=== PATIENT | female | born 1960 | race Caucasian/White ===

== ENCOUNTER → 2018-03-13 | Outpatient (CLI) | payer BC ==
[2018-03-14 03:45] LABS: Dermato. farinae IgE <0.10 kU/L
[2018-03-14 03:49] LABS: Cat Epith & Dander IgE <0.10 kU/L; Cockroach IgE <0.10 kU/L; Dog Dander IgE <0.10 kU/L
[2018-03-14 05:22] LABS: Red Top (Bentgrass) IgE <0.10 kU/L
[2018-03-14 05:25] LABS: Alternaria alternata IgE <0.10 kU/L; Birch IgE <0.10 kU/L; Elm IgE <0.10 kU/L; Maple (Box Elder) IgE <0.10 kU/L; Oak IgE <0.10 kU/L; Ragweed,Common IgE <0.10 kU/L
== END | disposition home or self-care (01) ==
LOC: LABWHC1 16:13
PROVIDERS: ATTEND Internal Medicine
DX: J45.909 Unspecified asthma, uncomplicated (principal)
CPT/HCPCS: 36415; 82785; 85008; 86003

== ENCOUNTER 2019-01-05 16:51 | Emergency (ER) | payer BC ==
--- NOTE | 2019-01-05 17:17 | ED ---
Lower Extremity Injury HPI - General Chief Complaint: Extremity Injury, Lower Stated Complaint: Leg Swelling Time Seen by Provider: 01/05/19 17:16 Source: patient, RN notes reviewed, old records reviewed Mode of arrival: ambulatory Limitations: no limitations - History of Present Illness Initial Comments: This is a 4-year-old female the ER for evaluation. Patient has a for evaluation of right lower extremity swelling concern for DVT. No history of DVT. Swelling is been increased for a few days since he primary care with no help. No history of swollen extremity the past. Denies any trauma. No history of DVT or PE, no chest pain or shortness of breath MD Complaint: other (Right lower extremity swelling) -: days(s) Injury: Leg: Right Place: home Severity: mild Severity scale (1-10): 3 Worsens With: nothing Associated Symptoms: swelling - Related Data Home Medications Medication Instructions Recorded Confirmed Mometasone/Formoterol [Dulera 200 2 puff INHALATION RT-BID 08/24/14 01/05/19 Mcg/5 Mcg Inhaler] Fish Oil/Dha/Epa [Fish Oil 1,200 1 cap PO DAILY 08/25/14 01/05/19 mg Fish Oil] ALPRAZolam [Xanax] 0.25 mg PO DAILY PRN 01/05/19 01/05/19 Adrenal Support 1 tab PO DAILY 01/05/19 01/05/19 Curcumin 1 tab PO DAILY 01/05/19 01/05/19 Loratadine [Claritin] 10 mg PO DAILY 01/05/19 01/05/19 Montelukast [Singulair] 10 mg PO HS 01/05/19 01/05/19 Natural Thyroid Support 1 tab PO DAILY 01/05/19 01/05/19 Omeprazole [PriLOSEC] 20 mg PO DAILY 01/05/19 01/05/19 Systemic Enzymes 1 tab PO DAILY 01/05/19 01/05/19 Vitamin B Complex 1 cap PO DAILY 01/05/19 01/05/19 Vitamin D3(Unknown) 1 tab PO DAILY 01/05/19 01/05/19 Allergies Allergy/AdvReac Type Severity Reaction Status Date / Time codeine Allergy Nausea & Verified 01/05/19 17:31 Vomiting Review of Systems ROS Statement: Those systems with pertinent positive or pertinent negative responses have been documented in the HPI. ROS Other: All systems not noted in ROS Statement are negative. 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 Past Anesthesia/Blood Transfusion Reactions: No Reported Reaction Past Psychological History: No Psychological Hx Reported Smoking Status: Never smoker Past Alcohol Use History: Occasional Past Drug Use History: None Reported - Past Family History Father Family Medical History: Myocardial Infarction ([place]) Additional Family Medical History / Comment(s): at 65. first [place] at 58 General Exam - General Exam Comments Initial Comments: Right lower extremity edema, dorsalis pedis posterior tibialis pulses palpable. Capillary refill Limitations: no limitations General appearance: alert, in no apparent distress Head exam: Present: atraumatic, normocephalic, normal inspection Eye exam: Present: normal appearance, PERRL, EOMI. Absent: scleral icterus, conjunctival injection, periorbital swelling ENT exam: Present: normal exam, mucous membranes moist Neck exam: Present: normal inspection. Absent: tenderness, meningismus, lymphadenopathy Respiratory exam: Present: normal lung sounds bilaterally. Absent: respiratory distress, wheezes, rales, rhonchi, stridor Cardiovascular Exam: Present: regular rate, normal rhythm, normal heart sounds. Absent: systolic murmur, diastolic murmur, rubs, gallop, clicks GI/Abdominal exam: Present: soft, normal bowel sounds. Absent: distended, tenderness, guarding, rebound, rigid Extremities exam: Present: normal inspection, full ROM, normal capillary refill. Absent: tenderness, pedal edema, joint swelling, calf tenderness Back exam: Present: normal inspection Neurological exam: Present: alert, oriented X3, CN II-XII intact Psychiatric exam: Present: normal affect, normal mood Skin exam: Present: warm, dry, intact, normal color. Absent: rash Course Vital Signs 01/05/19 01/05/19 17:05 19:26 Temperature 98.3 F 98.1 F Pulse Rate 72 70 Respiratory 18 16 Rate Blood Pressure 123/76 120/78 O2 Sat by Pulse 98 98 Oximetry Medical Decision Making - Medical Decision Making 58 female the ER for evaluation of right lower extremity edema. Ultrasound negative for DVT and patient can be discharged home - Radiology Data Radiology results: report reviewed (Ultrasound right lower extremity negative for DVT), image reviewed Disposition Clinical Impression: Leg edema, right Disposition: HOME SELF-CARE Instructions (If sedation given, give patient instructions): Leg Edema (ED) Is patient prescribed a controlled substance at d/c from ED?: No Referrals: Maxi Goins MD [Primary Care Provider] - 1-2 days
--- NOTE | 2019-01-05 18:26 | US ---
EXAMINATION TYPE: US venous doppler duplex LE RT DATE OF EXAM: 01/05/2019 5:42 PM COMPARISON: NONE CLINICAL HISTORY: Pain. SIDE PERFORMED: Right TECHNIQUE: The lower extremity deep venous system is examined utilizing real time linear array sonog mayank with graded compression, doppler sonography and color-flow sonography. VESSELS IMAGED: External Iliac Vein (EIV) Common Femoral Vein Deep Femoral Vein Greater Saphenous Vein * Femoral Vein Popliteal Vein Small Saphenous Vein * Proximal Calf Veins (* superficial vessels) Right Leg: Negative for DVT IMPRESSION: Normal right leg duplex venous sonogram.
[2019-01-05 19:26] VITALS: BP 120/78; PULSE 70; RESP 16; TEMP 98.1
== END 2019-01-05 19:26 | disposition home or self-care (01) ==
LOC: EC 16:51
DX: R60.0 Localized edema (principal); J45.909 Unspecified asthma, uncomplicated; Z79.899 Other long term (current) drug therapy; Z88.5 Allergy status to narcotic agent; Z85.820 Personal history of malignant melanoma of skin
CPT/HCPCS: 99284